=== PATIENT | female | born 1955 | race Hispanic/Latino ===

== ENCOUNTER 2016-12-18 23:58 | Emergency (ER) | payer SELFPAY ==
[2016-12-19 00:17] VITALS: BMI 29.2
[2016-12-19 00:20] VITALS: BP 134/92; PULSE 63; RESP 16; TEMP 98.5; O2SAT 98
[2016-12-19] MEDS ORDERED: Albuterol-Ipratrop 3 mg / 0.5 (3 ml) UD INH STA ×2 (00:35→01:34)
[2016-12-19] MEDS ORDERED: Promethazine/Cod 6.25mg-10mg/5ml Syr UD PO STA (00:35)
[2016-12-19] MEDS ORDERED: Albuterol-Ipratrop 3 mg / 0.5 (3 ml) UD ONE ×2 (00:48→01:45)
[2016-12-19] MEDS ORDERED: Promethazine 6.25 MG/5 ML CUP ONE (00:48)
--- NOTE | 2016-12-19 02:07 | ED PDOC ---
HPI: CCC, URI, Sore Throat Time Seen by Provider: 12/19/16 00:21 Chief Complaint (Nursing): Cough, Cold, Congestion Chief Complaint (Provider): Cough History Per: Patient History/Exam Limitations: no limitations Have you had recent travel within the past 21 days to any of the following countries: [place], [place], [place] or [place]?: No Onset/Duration Of Symptoms: Other (x3 weeks) Current Symptoms Are (Timing): Still Present Location Of Pain: None Sick Contacts (Context): None Associated Symptoms: denies: Fever, Chills, Nausea, Vomiting, Diarrhea Ear Symptoms: Bilateral: None Additional Complaint(s): 61 year old female presents to ED with complaints of a cough x3 weeks and no past medical history. Notes that the cough has been gradually worsening over time and describes it as a dry, hacking cough. States that her symptoms are similar to when she had "walking PNA" in the past. (-) fever, chills, nausea, vomiting, diarrhea, or chest pain. PCP: Clinic Past Medical History Reviewed: Historical Data, Nursing Documentation, Vital Signs Vital Signs: Last Vital Signs Temp 98.5 F 12/19/16 00:18 Pulse 63 12/19/16 00:18 Resp 16 12/19/16 00:18 BP 134/92 H 12/19/16 00:18 Pulse Ox 98 12/19/16 02:12 - Medical History PMH: Anxiety Denies: Chronic Kidney Disease - Surgical History Surgical History: No Surg Hx - Family History Family History: States: No Known Family Hx - Social History Current smoker - smoking cessation education provided: No Ex-Smoker (has not smoked in the last 12 months): No Alcohol: None Drugs: Denies - Home Medications Home Medications: Ambulatory Orders Medication Instructions Recorded Dicyclomine [Bentyl] 20 mg PO Q12 PRN #20 tab 09/24/15 Albuterol 0.5% [Albuterol 0.5% 2.5 mg IH Q6 PRN #1 packet 12/19/16 Inhal Rupal (2.5 mg/0.5 ml) UD] Albuterol HFA [Ventolin HFA 90 1 - 2 puff IH Q6 PRN #1 inhaler 12/19/16 mcg/actuation (8 g)] Azithromycin [Zithromax] 250 mg PO QAM #1 pkg 12/19/16 Benzonatate [Tessalon Perle] 100 mg PO TID PRN #15 capsule 12/19/16 Nebulizer [Compact Compressor 1 dev XX PRN PRN #1 dev 12/19/16 Nebulizer] predniSONE [predniSONE Tab] 60 mg PO QAM #12 tab 12/19/16 - Allergies Allergies/Adverse Reactions: Allergies Allergy/AdvReac Type Severity Reaction Status Date / Time No Known Allergies Allergy Verified 12/19/16 00:17 Curb-65 Severity Score - CURB-65 Severity Score Confusion: No Respiratory Rate greater than/equal to 30: No Systolic BP <90 or Diastolic BP less than/equal 60mmHg: No Age >64: No Curb-65 Score: 0 Percentage 30-day mortality: 0.6% Review of Systems ROS Statement: Except As Marked, All Systems Reviewed And Found Negative Constitutional: Negative for: Fever, Chills Cardiovascular: Negative for: Chest Pain Respiratory: Positive for: Cough Gastrointestinal: Negative for: Nausea, Vomiting, Diarrhea Physical Exam - Reviewed Nursing Documentation Reviewed: Yes Vital Signs Reviewed: Yes - Physical Exam Appears: Positive for: Non-toxic, No Acute Distress Head Exam: Positive for: ATRAUMATIC Skin: Positive for: Normal Color, Warm, Dry Eye Exam: Positive for: Normal appearance ENT: Positive for: Normal ENT Inspection Neck: Positive for: Normal Cardiovascular/Chest: Positive for: Regular Rate, Rhythm. Negative for: Murmur Respiratory: Positive for: Wheezing (bilaterally). Negative for: Normal Breath Sounds, Respiratory Distress Extremity: Negative for: Deformity Neurologic/Psych: Positive for: Alert, Oriented. Negative for: Motor/Sensory Deficits - ECG O2 Sat by Pulse Oximetry: 98 (RA) Pulse Ox Interpretation: Normal - Radiology X-Ray: Interpreted by Me, Viewed By Me X-Ray Interpretation: No Acute Disease Nexus Criteria: Negative Medical Decision Making Medical Decision Makin Initial impression: persistent cough Initial plan: * CXR * Duonebs 3mL INH x2 * Prednisone 60mg PO * Peak flow pre/post Tx x2 Scribe Attestation: Documented by Kala Stewart acting as a scribe for Sawyer Green MD. Scribe Attestation: All medical record entries made by the Scribe were at my direction and personally dictated by me. I have reviewed the chart and agree that the record accurately reflects my personal performance of the history, physical exam, medical decision making, and the department course for this patient. I have also personally directed, reviewed, and agree with the discharge instructions and disposition. Disposition - Clinical Impression Clinical Impression: Bronchitis - Disposition Referrals: [facility] [Outside] Disposition: Routine/Home Disposition Time: 01:00 Condition: STABLE Prescriptions: Albuterol 0.5% [Albuterol 0.5% Inhal Rupal (2.5 mg/0.5 ml) UD] 2.5 mg IH Q6 PRN # 1 packet PRN Reason: Shortness Of Breath Albuterol HFA [Ventolin HFA 90 mcg/actuation (8 g)] 1 - 2 puff IH Q6 PRN #1 inhaler PRN Reason: Shortness Of Breath Azithromycin [Zithromax] 250 mg PO QAM #1 pkg Benzonatate [Tessalon Perle] 100 mg PO TID PRN #15 capsule PRN Reason: Cough Nebulizer [Compact Compressor Nebulizer] 1 dev XX PRN PRN #1 dev PRN Reason: Shortness Of Breath predniSONE [predniSONE Tab] 60 mg PO QAM #12 tab Instructions: Acute Bronchitis (ED)
--- NOTE | 2016-12-19 11:02 | RAD ---
HISTORY: cough COMPARISON: Chest x-ray performed 08/17/13 TECHNIQUE: Chest PA and lateral FINDINGS: Examination limited by habitus. LUNGS: No focal consolidation. Please note that chest x-ray has limited sensitivity for the detection of pulmonary masses. PLEURA: No significant pleural effusion identified. No definite pneumothorax . CARDIOVASCULAR: Heart size appears top normal. OSSEOUS STRUCTURES: Degenerative changes. VISUALIZED UPPER ABDOMEN: Unremarkable. OTHER FINDINGS: None. IMPRESSION: No focal consolidation, significant pleural effusion, or definite pneumothorax identified.
== END 2016-12-19 02:15 | disposition home or self-care (01) ==
LOC: H.ER 23:58
DX: J40 Bronchitis, not specified as acute or chronic (principal); R06.02 Shortness of breath

== ENCOUNTER 2017-10-11 05:07 | Emergency (ER) | payer OTHER ==
[2017-10-11 05:07] VITALS: BMI 29.2
[2017-10-11 05:28] VITALS: RESP 18; O2SAT 99
--- NOTE | 2017-10-11 06:11 | ED PDOC ---
HPI: Headache Time Seen by Provider: 10/11/17 05:32 Chief Complaint (Nursing): ENT Problem Chief Complaint (Provider): RIGHT ear pain Additional Complaint(s): Pt reports having problems with her ears for the past 3 yrs. Exacerbated by flying. Recently "weird, Muffled" feeling to her right ear that has been worsening since Thursday. Pt states she was yelling on thursday and it set it off and also reports she flew 3 weeks ago. Pt also complaining of being under a lot of stress lately and that she ran out of her Xanax prescription and is requesting a prescription for it. She reports that her doctors are in [place] and that work causes stress but that she needs to work due to financial issues. PMD [facility] Nikole Past Medical History Reviewed: Historical Data, Nursing Documentation, Vital Signs Vital Signs: Last Vital Signs Temp 97.5 F L 10/11/17 05:24 Pulse 65 10/11/17 05:24 Resp 18 10/11/17 05:24 BP 163/86 H 10/11/17 05:24 Pulse Ox 99 10/11/17 05:24 - Medical History PMH: Anxiety Denies: Chronic Kidney Disease - Family History Family History: States: Unknown Family Hx - Social History Current smoker - smoking cessation education provided: Yes - Home Medications Home Medications: Ambulatory Orders Medication Instructions Recorded Dicyclomine [Bentyl] 20 mg PO Q12 PRN #20 tab 09/24/15 Albuterol 0.5% [Albuterol 0.5% 2.5 mg IH Q6 PRN #1 packet 12/19/16 Inhal Rupal (2.5 mg/0.5 ml) UD] Albuterol HFA [Ventolin HFA 90 1 - 2 puff IH Q6 PRN #1 inhaler 12/19/16 mcg/actuation (8 g)] Azithromycin [Zithromax] 250 mg PO QAM #1 pkg 12/19/16 Benzonatate [Tessalon Perle] 100 mg PO TID PRN #15 capsule 12/19/16 Nebulizer [Compact Compressor 1 dev XX PRN PRN #1 dev 12/19/16 Nebulizer] predniSONE [predniSONE Tab] 60 mg PO QAM #12 tab 12/19/16 Carbamide Peroxide [Debrox 15 Ml] 4 drop AD BID #1 bottle 10/11/17 - Allergies Allergies/Adverse Reactions: Allergies Allergy/AdvReac Type Severity Reaction Status Date / Time No Known Allergies Allergy Verified 12/19/16 00:17 Review of Systems ROS Statement: Except As Marked, All Systems Reviewed And Found Negative Physical Exam - Reviewed Nursing Documentation Reviewed: Yes Vital Signs Reviewed: Yes - Physical Exam Appears: Positive for: Non-toxic, No Acute Distress Head Exam: Positive for: ATRAUMATIC, NORMOCEPHALIC Skin: Positive for: Warm, Dry Eye Exam: Positive for: EOMI, PERRL ENT: Positive for: TM Is/Are (bilateral cerumen, impacted on RIGHT) Neck: Positive for: Painless ROM, Supple Cardiovascular/Chest: Positive for: Regular Rate, Rhythm. Negative for: Murmur Respiratory: Positive for: Normal Breath Sounds. Negative for: Wheezing Gastrointestinal/Abdominal: Positive for: Soft. Negative for: Tenderness Back: Positive for: Normal Inspection. Negative for: Decreased ROM Neurologic/Psych: Positive for: Alert, Mood/Affect (anxious affect). Negative for: Motor/Sensory Deficits - ECG O2 Sat by Pulse Oximetry: 99 Disposition - Clinical Impression Clinical Impression: Right ear pain, Impacted cerumen of right ear, Anxiety Counseled Patient/Family Regarding: Studies Performed, Diagnosis - Disposition Referrals: [facility] [Outside] Disposition: Routine/Home Disposition Time: 06:09 Condition: STABLE Prescriptions: Carbamide Peroxide [Debrox 15 Ml] 4 drop AD BID #1 bottle Instructions: Ear Wax Impaction Forms: [employer] [facility] (Arabic)
[2017-10-11 06:26] VITALS: BP 156/83; PULSE 87
[2017-10-11 06:27] VITALS: TEMP 98
== END 2017-10-11 06:26 | disposition home or self-care (01) ==
LOC: H.ER 05:07
DX: H61.21 Impacted cerumen, right ear (principal); F41.9 Anxiety disorder, unspecified

== ENCOUNTER 2017-10-13 11:44 | Emergency (ER) | payer OTHER, SELFPAY ==
[2017-10-13 11:44] VITALS: BMI 29.2
[2017-10-13 12:15] VITALS: BP 145/82; PULSE 74; RESP 18; TEMP 98.8; O2SAT 100
--- NOTE | 2017-10-13 13:13 | ED PDOC ---
HPI: General Adult Time Seen by Provider: 10/13/17 12:25 Chief Complaint (Nursing): Med Refill Chief Complaint (Provider): Med Refill History Per: Patient History/Exam Limitations: no limitations Onset/Duration Of Symptoms: Mins Current Symptoms Are (Timing): Still Present Additional Complaint(s): 62 year old female presents to the ED with the complaint of generalized anxiety. Patient states she was seen at the clinic by Dr. Nuñez prior to arrival and was advised to come to the ED for medication refill of Xanax 2 mg daily. Patient reports she has been on it for twelve years, but has not taken it for the last four days. Patient states she is feeling anxious and is unable to focus. Denies suicidal and homicidal ideation, hallucinations. Patient has no physical complaints at this time. Otherwise: (-) trauma, (-) fever, (-) headache, (-) dyspnea, (-) vomiting, (-) substance abuse, (-) patient intent of initiating a suicide attempt, (-) plan. PMD: Dr. Nuñez/clinic LNMP: Greater than 5 years ago Past Medical History Reviewed: Historical Data, Nursing Documentation, Vital Signs Vital Signs: Last Vital Signs Temp 98.8 F 10/13/17 12:12 Pulse 74 10/13/17 12:12 Resp 18 10/13/17 12:12 BP 145/82 10/13/17 12:12 Pulse Ox 100 10/13/17 14:53 - Medical History PMH: Anxiety Denies: Diabetes, Hepatitis, HIV, HTN, Chronic Kidney Disease, Seizures, Sexually Transmitted Disease - Surgical History Surgical History: No Surg Hx - Family History Family History: States: Unknown Family Hx - Social History Current smoker - smoking cessation education provided: No Ex-Smoker (has not smoked in the last 12 months): Yes (Has not smoked in 30 years) Alcohol: None Drugs: Denies - Home Medications Home Medications: Ambulatory Orders Medication Instructions Recorded Dicyclomine [Bentyl] 20 mg PO Q12 PRN #20 tab 09/24/15 Albuterol 0.5% [Albuterol 0.5% 2.5 mg IH Q6 PRN #1 packet 12/19/16 Inhal Rupal (2.5 mg/0.5 ml) UD] Albuterol HFA [Ventolin HFA 90 1 - 2 puff IH Q6 PRN #1 inhaler 12/19/16 mcg/actuation (8 g)] Azithromycin [Zithromax] 250 mg PO QAM #1 pkg 12/19/16 Benzonatate [Tessalon Perle] 100 mg PO TID PRN #15 capsule 12/19/16 Nebulizer [Compact Compressor 1 dev XX PRN PRN #1 dev 12/19/16 Nebulizer] predniSONE [predniSONE Tab] 60 mg PO QAM #12 tab 12/19/16 Carbamide Peroxide [Debrox 15 Ml] 4 drop AD BID #1 bottle 10/11/17 - Allergies Allergies/Adverse Reactions: Allergies Allergy/AdvReac Type Severity Reaction Status Date / Time No Known Allergies Allergy Verified 12/19/16 00:17 Review of Systems ROS Statement: Except As Marked, All Systems Reviewed And Found Negative Psych: Positive for: Anxiety Physical Exam - Reviewed Nursing Documentation Reviewed: Yes Vital Signs Reviewed: Yes - Physical Exam Comments: GENERAL APPEARANCE: Patient is awake, alert, oriented x 3. No acute distress. SKIN: Warm, dry; (-) cyanosis EYES: (-) conjunctival pallor, (-) scleral icterus, (-) nystagmus. ENMT: Mucous membranes moist. Airway patent: (-) stridor. NECK: Supple, FROM (-) tenderness, (-) stiffness CHEST AND RESPIRATORY: (-) rales, (-) rhonchi, (-) wheezes; breath sounds equal. ABDOMEN: Soft, (-) distention, (-) tenderness, (-) guarding. NEURO AND PSYCH: Mental status as above. Affect: Calm but anxious appearing. Patient is pacing in exam room and ED hallways. satellite dish installer: Intact. Pupils equal and reactive; EOMI; (-) facial asymmetry; tongue and uvula midline. Gait steady. - ECG O2 Sat by Pulse Oximetry: 100 (RA) Pulse Ox Interpretation: Normal Medical Decision Making Medical Decision Making: Clinical Impression: Medication Refill, Anxiety Plan: -- Crisis Evaluation Time: 1333 Patient is to be discharged per Dr. Manzano with a diagnosis of anxiety. Patient is not to be given medication refill of Xanax by ED provider. Must obtain refill from PMD. Time: 1349 Upon discussing with patient that xanax cannot be refilled, patient became very agitated. Patient walked into crisis office and was verbally aggressive towards staff and demanding to be seen by psychiatric MD while in ED. Security was called to escort patient out of ED upon discharge. Patient was advised that her xanax refill needs to be refilled by PMD or her own psychiatrist. Patient states she fully understands discharge instructions and disposition. Verbalized and repeated discharge instructions and plan. I have given the patient opportunity to ask any additional questions. VSS. Scribe Attestation: Documented by Valeriy Ku, acting as a scribe for Kelsey Kaminski PA-C. Provider Scribe Attestation: All medical record entries made by the Scribe were at my direction and personally dictated by me. I have reviewed the chart and agree that the record accurately reflects my personal performance of the history, physical exam, medical decision making, and the department course for this patient. I have also personally directed, reviewed, and agree with the discharge instructions and disposition. Disposition - Clinical Impression Clinical Impression: Anxiety - Patient ED Disposition Is Patient to be Admitted: No Counseled Patient/Family Regarding: Diagnosis, Need For Followup - Disposition Referrals: [facility] [Outside] [facility] [Outside] Disposition: Routine/Home Disposition Time: 13:43 Condition: FAIR Instructions: Anxiety, Adult (DC) Forms: [employer] [facility] (Citizen [place]) Print Language: MOLDOVAN - POA Present On Arrival: None
== END 2017-10-13 14:09 | disposition home or self-care (01) ==
LOC: H.ER 11:44
DX: Z76.0 Encounter for issue of repeat prescription (principal); F41.1 Generalized anxiety disorder

== ENCOUNTER 2017-10-22 01:11 | Emergency (ER) | payer OTHER ==
[2017-10-22 02:02] VITALS: BMI 27.4
[2017-10-22 02:09] VITALS: BP 117/83; PULSE 74; RESP 16; TEMP 98; O2SAT 98
--- NOTE | 2017-10-22 02:58 | ED PDOC ---
HPI: General Adult Time Seen by Provider: 10/22/17 02:19 Chief Complaint (Nursing): ENT Problem History Per: Patient History/Exam Limitations: no limitations Onset/Duration Of Symptoms: Days Current Symptoms Are (Timing): Still Present Additional Complaint(s): Hx of anxiety p/w R ear pain, states she feels swelling in the ear, difficulty hearing. Denies PARKER's. States she feels anxiety over issue, but feeling better after taking benzo prior to arrival. States she was using debrox but discontinued. Has appointment with ENT in 2 days. Past Medical History Reviewed: Historical Data, Nursing Documentation, Vital Signs Vital Signs: Last Vital Signs Temp 98.0 F 10/22/17 02:05 Pulse 74 10/22/17 02:05 Resp 16 10/22/17 02:05 BP 117/83 10/22/17 02:05 Pulse Ox 98 10/22/17 02:05 - Medical History PMH: Anxiety Denies: Diabetes, Hepatitis, HIV, HTN, Chronic Kidney Disease, Seizures, Sexually Transmitted Disease - Family History Family History: States: Unknown Family Hx - Home Medications Home Medications: Ambulatory Orders Medication Instructions Recorded Dicyclomine [Bentyl] 20 mg PO Q12 PRN #20 tab 09/24/15 Albuterol 0.5% [Albuterol 0.5% 2.5 mg IH Q6 PRN #1 packet 12/19/16 Inhal Rupal (2.5 mg/0.5 ml) UD] Albuterol HFA [Ventolin HFA 90 1 - 2 puff IH Q6 PRN #1 inhaler 12/19/16 mcg/actuation (8 g)] Azithromycin [Zithromax] 250 mg PO QAM #1 pkg 12/19/16 Benzonatate [Tessalon Perle] 100 mg PO TID PRN #15 capsule 12/19/16 Nebulizer [Compact Compressor 1 dev XX PRN PRN #1 dev 12/19/16 Nebulizer] predniSONE [predniSONE Tab] 60 mg PO QAM #12 tab 12/19/16 Carbamide Peroxide [Debrox 15 Ml] 4 drop AD BID #1 bottle 10/11/17 - Allergies Allergies/Adverse Reactions: Allergies Allergy/AdvReac Type Severity Reaction Status Date / Time No Known Allergies Allergy Verified 10/22/17 02:02 Review of Systems ROS Statement: Except As Marked, All Systems Reviewed And Found Negative ENT: Positive for: Ear Pain Psych: Positive for: Anxiety Physical Exam - Reviewed Nursing Documentation Reviewed: Yes Vital Signs Reviewed: Yes - Physical Exam Appears: Positive for: Well, Non-toxic, No Acute Distress Head Exam: Positive for: ATRAUMATIC, NORMAL INSPECTION, NORMOCEPHALIC Skin: Positive for: Normal Color, Warm, DRY Eye Exam: Positive for: EOMI, Normal appearance, PERRL ENT: Positive for: Other (cerumen impaction) Neck: Positive for: Normal - ECG O2 Sat by Pulse Oximetry: 98 Pulse Ox Interpretation: Normal Medical Decision Making Medical Decision Making: A/P: Hx of anxiety p/w R ear fullness/pain -no signs of mastoiditis/otitis media or externa -patient had cerumen impaction that was debrided -patient felt much better after wax was dislodged -advised to keep appointment with Dr. Gatica Disposition - Clinical Impression Clinical Impression: Impacted cerumen of right ear - Disposition Referrals: Manfred Gatica MD [Staff Provider] - Disposition: Routine/Home Disposition Time: 03:00 Condition: IMPROVED Instructions: Ear Wax Impaction Forms: [facility] [employer] Connect (Citizen [place])
== END 2017-10-22 02:55 | disposition home or self-care (01) ==
LOC: H.ER 01:11
DX: H61.21 Impacted cerumen, right ear (principal)

== ENCOUNTER 2018-01-15 08:46 | Emergency (ER) | payer MEDICAID, OTHER ==
[2018-01-15 08:53] VITALS: TEMP 97; O2SAT 98; BMI 28.1
[2018-01-15] MEDS ORDERED: Tdap Vaccine 0.5 ml Vial (10-64 yrs) IM ONE ×2 (09:13→09:33)
[2018-01-15] MEDS ORDERED: Naproxen 500 MG TAB PO ONE ×2 (09:14→09:32)
--- NOTE | 2018-01-15 09:44 | ED PDOC ---
HPI: Head Injury Time Seen by Provider: 01/15/18 09:03 Chief Complaint (Nursing): Trauma Chief Complaint (Provider): Trauma History Per: Patient History/Exam Limitations: no limitations Injury Occurred (Timing): Just Before Arrival Patient States: Fell Striking Head Additional Complaint(s): Neris West is a 62 y/o female with no signifcant past medical history who presents to the ED today due to a head injury just prior to arrival. 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 She denies any loss of concsiousness, neck pain, dizziness, nausea , or headache. Patient also reports she is not up to date on her tetanus shots. She also complains about her jaw locking but states that this is not associated with the head trauma. PMD: None provided Past Medical History Reviewed: Historical Data, Nursing Documentation, Vital Signs Vital Signs: Last Vital Signs Temp 97 F L 01/15/18 08:52 Pulse 57 L 01/15/18 08:52 Resp BP 133/72 01/15/18 08:52 Pulse Ox 98 01/15/18 08:52 - Medical History PMH: Anxiety Denies: Diabetes, Hepatitis, HIV, HTN, Chronic Kidney Disease, Seizures, Sexually Transmitted Disease - Family History Family History: States: Unknown Family Hx - Home Medications Home Medications: Ambulatory Orders Medication Instructions Recorded Dicyclomine [Bentyl] 20 mg PO Q12 PRN #20 tab 09/24/15 Albuterol 0.5% [Albuterol 0.5% 2.5 mg IH Q6 PRN #1 packet 12/19/16 Inhal Rupal (2.5 mg/0.5 ml) UD] Albuterol HFA [Ventolin HFA 90 1 - 2 puff IH Q6 PRN #1 inhaler 12/19/16 mcg/actuation (8 g)] Azithromycin [Zithromax] 250 mg PO QAM #1 pkg 12/19/16 Benzonatate [Tessalon Perle] 100 mg PO TID PRN #15 capsule 12/19/16 Nebulizer [Compact Compressor 1 dev XX PRN PRN #1 dev 12/19/16 Nebulizer] predniSONE [predniSONE Tab] 60 mg PO QAM #12 tab 12/19/16 Carbamide Peroxide [Debrox 15 Ml] 4 drop AD BID #1 bottle 10/11/17 Acetaminophen [Tylenol 325mg tab] 650 mg PO Q6H PRN #50 tab 01/15/18 Naproxen [Naprosyn] 500 mg PO BID PRN #20 tablet 01/15/18 - Allergies Allergies/Adverse Reactions: Allergies Allergy/AdvReac Type Severity Reaction Status Date / Time No Known Allergies Allergy Verified 01/15/18 08:57 Review of Systems ROS Statement: Except As Marked, All Systems Reviewed And Found Negative Cardiovascular: Negative for: Light Headedness Gastrointestinal: Negative for: Nausea Musculoskeletal: Negative for: Neck Pain Neurological: Negative for: Headache, Dizziness, Other (loss of consciousness ) Physical Exam - Reviewed Nursing Documentation Reviewed: Yes Vital Signs Reviewed: Yes - Physical Exam Appears: Positive for: Non-toxic, No Acute Distress Head Exam: Positive for: ATRAUMATIC (Hematoma 4cm; superficial complete avulsion , no active bleeding; no palpable bony deformity), NORMOCEPHALIC Eye Exam: Positive for: Normal appearance, EOMI, PERRL. Negative for: Other ( diplopia) Neck: Positive for: Normal (no posterior spine tenderness on palpation), Painless ROM Neurologic/Psych: Positive for: Alert, Oriented - ECG O2 Sat by Pulse Oximetry: 98 (RA) Pulse Ox Interpretation: Normal Medical Decision Making Medical Decision Making: Time:09:13 Initial Impression: Superficial head injury with superficial skin avulsion Initial Plan: --Adacel 0.5 ml IM --Naproxen 500 mg PO ----- Scribe Attestation: Documented by Dylon Pichardo, acting as a scribe for Amaris Khan MD. Provider Scribe Attestation: All medical record entries made by the Scribe were at my direction and personally dictated by me. I have reviewed the chart and agree that the record accurately reflects my personal performance of the history, physical exam, medical decision making, and the department course for this patient. I have also personally directed, reviewed, and agree with the discharge instructions and disposition. Disposition - Clinical Impression Clinical Impression: Head injury without fracture of skull - Patient ED Disposition Is Patient to be Admitted: No Doctor Will See Patient In The: Office Counseled Patient/Family Regarding: Diagnosis, Need For Followup, Rx Given - Disposition Referrals: [facility] [Outside] [facility] [Outside] [facility] [Outside] [facility] [Outside] Disposition: Routine/Home Disposition Time: 09:45 Condition: STABLE Prescriptions: Acetaminophen [Tylenol 325mg tab] 650 mg PO Q6H PRN #50 tab PRN Reason: Pain, Mild (1-3) Naproxen [Naprosyn] 500 mg PO BID PRN #20 tablet PRN Reason: Pain, Moderate (4-7) Instructions: Minor Head Injury Forms: [facility] ([place]ic), [facility] ED School/Work Excuse - POA Present On Arrival: Falls Or Trauma
[2018-01-15 10:13] VITALS: BP 126/78; PULSE 78; RESP 19
== END 2018-01-15 10:14 | disposition home or self-care (01) ==
LOC: H.ER 08:46
DX: S09.90XA Unspecified injury of head, initial encounter (principal); W01.0XXA Fall on same level from slipping, tripping and stumbling without subsequent striking against object, initial encounter; Y99.0 Civilian activity done for income or pay; F41.9 Anxiety disorder, unspecified